=== PATIENT | female | born 1955 | race Caucasian/White ===

== ENCOUNTER 2022-11-27 10:43 | Outpatient (REF) | payer MEDICARE, SELFPAY ==
[2022-11-27 11:01] LABS: MANUAL DIFF FLAG NO
[2022-11-27 11:58] LABS: Basophils Absolute Auto 0.1 X10*3/uL (0.0-0.2); Eosinophils Absolute Auto 0.2 X10*3/uL (0.0-0.4); Eosinophils Percent Auto 2.4 % (0-4); Hematocrit 39.1 % (37.0-47.0); Hemoglobin 12.9 g/dl (12.0-16.0); Imm Gran Abs Auto 0.04 X10*3/uL (0.00-0.03); Imm Gran Pct Auto 0.6 % (0.0-0.4); Lymphocytes Absolute Auto 2.1 X10*3/uL (1.2-4.9); Lymphocytes Percent Auto 30.4 % (20-40); Mean Corpuscular Hemoglobin 28.5 pg (27.0-33.0); Mean Corpuscular Volume 86.3 fL (80.0-98.0); Mean Platelet Volume 8.7 fL (9.4-12.3); Monocytes Absolute Auto 0.4 X10*3/uL (0.1-1.2); Monocytes Percent Auto 5.7 % (2-11); Neutrophils Absolute Auto 4.2 x10*3/uL (2.0-8.3); Neutrophils Percent Auto 59.9 % (45-73); Platelet Count 331 X10*3/uL (160-400); Red Blood Count 4.53 X10*6/uL (4.20-5.50); Red Cell Distribution Width 12.9 % (11.0-16.0)
[2022-11-27 12:56] LABS: Alanine Aminotransferase 13 U/L (0-31); Albumin Level 4.1 g/dL (3.5-5.0); Alkaline Phosphatase 71 U/L (39-117); Anion Gap 9 (12-20); Aspartate Amino Transferase 16 U/L (5-31); Bilirubin Total 0.4 mg/dL (0.0-1.0); Blood Urea Nitrogen 11 mg/dL (9-16); Calcium 9.4 mg/dL (8.4-10.2); Carbon Dioxide 31 mmol/L (22-29); Chloride 105 mmol/L (96-108); Cholesterol 194 mg/dL; Estimated Glomerular Filt Rate > 60; Glucose Fasting 96 mg/dL (60-99); HDL Cholesterol 49 mg/dL; LDL Cholesterol Calculated 131 mg/dl; Sodium 141 mmol/L (135-145); Triglycerides 71 mg/dL
[2022-11-27 13:14] LABS: Estimated Average Glucose 105 mg/dL; Hemoglobin A1C 152.5264 umol/L; Hemoglobin A1c % 5.3 %
== END 2022-11-27 10:44 | disposition home or self-care (01) ==
LOC: HO.LAB 10:43
PROVIDERS: PCP Internal Medicine; Visit Provider Internal Medicine
DX: I10 Essential (primary) hypertension (principal); G47.00 Insomnia, unspecified; R73.03 Prediabetes; Z83.3 Family history of diabetes mellitus
CPT/HCPCS: 36415; 80053; 80061; 83036; 85025

== ENCOUNTER 2023-10-22 10:31 | Outpatient (REF) | payer MEDICARE, SELFPAY ==
[2023-10-22 13:47] LABS: Cholesterol 193 mg/dL (<200); HDL Cholesterol 49 mg/dL (>40); LDL Cholesterol Calculated 132 mg/dL (<100); Triglycerides 64 mg/dL (<150)
== END 2023-10-22 10:32 | disposition home or self-care (01) ==
LOC: HO.HMGCLDS 10:31
PROVIDERS: PCP Internal Medicine; Visit Provider Internal Medicine
DX: E78.00 Pure hypercholesterolemia, unspecified (principal)
CPT/HCPCS: 36415; 80061

== ENCOUNTER 2023-11-12 09:52 | Outpatient (REF) | payer MEDICARE, SELFPAY ==
[2023-11-12 11:16] LABS: MANUAL DIFF FLAG NO
[2023-11-12 11:26] LABS: Basophils Absolute Auto 0.1 X10*3/uL (0.0-0.2); Basophils Percent Auto 1.4 % (0-2); Eosinophils Absolute Auto 0.1 X10*3/uL (0.0-0.4); Hematocrit 41.3 % (37.0-47.0); Hemoglobin 13.6 g/dl (12.0-16.0); Imm Gran Abs Auto 0.02 X10*3/uL (0.00-0.03); Imm Gran Pct Auto 0.3 % (0.0-0.4); Lymphocytes Absolute Auto 1.9 X10*3/uL (1.2-4.9); Lymphocytes Percent Auto 27.4 % (20-40); Mean Corpuscular HGB Conc 32.9 g/dl (31.0-35.0); Mean Platelet Volume 8.8 fL (9.4-12.3); Monocytes Absolute Auto 0.4 X10*3/uL (0.1-1.2); Monocytes Percent Auto 6.1 % (2-11); Neutrophils Absolute Auto 4.4 x10*3/uL (2.0-8.3); Neutrophils Percent Auto 62.8 % (45-73); Platelet Count 346 X10*3/uL (160-400); Red Blood Count 4.86 X10*6/uL (4.20-5.50); Red Cell Distribution Width 12.7 % (11.0-16.0); White Blood Count 7.1 X10*3/uL (4.8-10.8)
[2023-11-12 12:04] LABS: Rheumatoid Factor < 13.0 IU/mL (<15.0)
[2023-11-12 12:14] LABS: Alanine Aminotransferase 13 U/L (0-31); Albumin Level 4.3 g/dL (3.5-5.0); Alkaline Phosphatase 66 U/L (39-117); Anion Gap 14 (12-20); Aspartate Amino Transferase 17 U/L (5-31); Bilirubin Total 0.5 mg/dL (0.0-1.0); Blood Urea Nitrogen 11 mg/dL (9-16); Calcium 10.1 mg/dL (8.4-10.2); Carbon Dioxide 27 mmol/L (22-29); Chloride 102 mmol/L (96-108); Estimated Glomerular Filt Rate > 60; Glucose Random 102 mg/dL (60-115); Potassium 4.3 mmol/L (3.3-5.1); Sodium 139 mmol/L (135-145); Total Protein 7.6 g/dL (6.5-8.0)
[2023-11-12 12:37] LABS: Free T4 (Free Thyroxine) 0.86 ng/dL (0.71-1.85)
[2023-11-13 23:13] LABS: Lyme Abs Screen <0.90 index
[2023-11-15 08:18] LABS: Anti Nuclear Antibody Screen NEGATIVE (NEGATIVE)
== END 2023-11-12 09:53 | disposition home or self-care (01) ==
LOC: HO.10HDL 09:52
PROVIDERS: Visit Provider Internal Medicine
DX: R53.83 Other fatigue (principal); M25.50 Pain in unspecified joint; W57.XXXA Bitten or stung by nonvenomous insect and other nonvenomous arthropods, initial encounter; Z86.39 Personal history of other endocrine, nutritional and metabolic disease
CPT/HCPCS: 36415; 80053; 84439; 84443; 85025; 86038; 86431; 86617; 86618

== ENCOUNTER 2025-01-23 10:46 | Outpatient (REF) | payer MEDICARE, SELFPAY ==
[2025-01-23 12:27] LABS: Hematocrit 40.0 % (37.0-47.0); Hemoglobin 13.3 g/dl (12.0-16.0); Mean Corpuscular HGB Conc 33.3 g/dl (31.0-35.0); Mean Corpuscular Hemoglobin 28.5 pg (27.0-33.0); Mean Corpuscular Volume 85.8 fL (80.0-98.0); NRBC Abs Auto 0.000 X10*3/uL (0.0-0.012); NRBC Pct Auto 0.0 /100WBC (0.0-0.2); Platelet Count 336 X10*3/uL (160-400); Red Blood Count 4.66 X10*6/uL (4.20-5.50); White Blood Count 6.4 X10*3/uL (4.8-10.8)
[2025-01-23 12:36] LABS: Hemoglobin A1C 130.4903 umol/L; Total Hemoglobin (HGBA1C) 3441.1382 umol/L
[2025-01-23 12:44] LABS: Appearance Urine Clear; Glucose Urine UA Negative (Negative); PH 6.0 (5.0-9.0); Specific Gravity - Urine 1.020 (1.005-1.025); UMIC TRIGGER UA YES
[2025-01-23 12:47] LABS: Alanine Aminotransferase 17 U/L (0-31); Albumin Level 4.4 g/dL (3.5-5.0); Alkaline Phosphatase 69 U/L (39-117); Anion Gap 11 (12-20); Aspartate Amino Transferase 22 U/L (5-31); Blood Urea Nitrogen 11 mg/dL (9-16); Calcium 9.1 mg/dL (8.4-10.2); Carbon Dioxide 27 mmol/L (22-29); Chloride 107 mmol/L (96-108); Cholesterol 215 mg/dL (<200); Estimated Glomerular Filt Rate > 60; HDL Cholesterol 49 mg/dL (>40); Potassium 3.9 mmol/L (3.3-5.1); Sodium 141 mmol/L (135-145); Total Protein 7.5 g/dL (6.5-8.0); Triglycerides 70 mg/dL (<150)
[2025-01-23 13:02] LABS: Thyroid Stimulating Hormone 1.66 uIU/mL (0.32-4.0)
== END 2025-01-23 10:47 | disposition home or self-care (01) ==
LOC: HO.10HDL 10:46
PROVIDERS: PCP Physician Assistant; Visit Provider Internal Medicine
DX: I10 Essential (primary) hypertension (principal); Z13.1 Encounter for screening for diabetes mellitus
CPT/HCPCS: 36415; 80048; 80061; 80076; 81001; 83036; 84443; 85027; 99212

== ENCOUNTER 2025-01-23 10:46 | Outpatient (AMB) | payer MEDICARE, SELFPAY ==
--- NOTE | 2025-01-23 10:28 | A.OFFPC_ITS ---
Vital Signs 01/23/25 10:51 Height 5 ft Weight 157 lb BMI 30.7 BP 130/72 Blood Pressure Location Rt brachial Position Sitting Pulse 64 Pulse Source Pulse Oximeter Temp 97.1 F Temp Source Axillary Pulse Oximetry (%) 97 Oxygen Delivery Method Room Air Intake Visit Reasons: routine Party Supply Specialist Required: No Accompanied by: Self / Same As Patient Allergies No Known Allergies Allergy (Verified 01/23/25 19:37) Medication List - Last Reconciled 01/23/25 by Anthony Hammonds MD aspirin 81 mg PO DAILY B-complex with vitamin C 1 cap PO DAILY cholecalciferol (vitamin D3) 50 mcg PO DAILY esomeprazole magnesium (Nexium) 20 mg PO DAILY lisinopril 2.5 mg PO DAILY Tobacco use date assessed: 01/23/25 Fall risk assessment: No Falls in past year Last assessed Fall Risk: 01/23/25 Dental Screening Dental Screen Date: 01/23/25 Did you have a dental visit in the last 12 months?: Yes Did you have a dental problem in the last 6 months where you did not have access to dental care?: No PFSH Medical History Essential hypertension Family History Mother No problems noted. Father No problems noted. Social History Housing: House Patient Tobacco Use Status: Never used Tobacco e-Cigarette/Vaping Use: Never Used service: No Current occupational status: employed Cognitive needs: No Hearing needs: No Vision needs: Yes (rx glasses) Questionnaire PHQ-9 Over the last 2 weeks, how often have you been bothered by any of the following problems? 1. Little interest or pleasure in doing things: not at all 2. Feeling down, depressed, or hopeless: not at all 3. Trouble falling or staying asleep, or sleeping too much: not at all 4. Feeling tired or having little energy: not at all 5. Poor appetite or overeating: not at all 6. Feeling bad about yourself - or that you are a failure or have let yourself or your family down: not at all 7. Trouble concentrating on things, such as reading the newspaper or watching television: not at all 8. Moving or speaking so slowly that other people could have noticed. Or the opposite - being so fidgety or restless that you have been moving around a lot more than usual: not at all 9. Thoughts that you would be better off or of hurting yourself in some way: not at all Total score: 0 Source: Developed by Drs. Wade Harman, Rekha Levine, Kevin Holm and colleagues, with an educational gail from [employer]. Thrive Questionnaire Date Thrive assessed: 01/23/25 I am a: Patient Within the past 12 months, did the food you bought not last and you didn't have the money to get more?: Never true Within the past 12 months, did you worry whether your food would run out before you got money to buy more?: Never true Do you have trouble paying for medicines?: No Do you have trouble getting transportation to medical appointments?: No Do you have trouble paying your heating and electricity bill?: No Do you have trouble taking care of your child, family member or friend?: No Do you have trouble with day-to-day activities such as bathing, preparing meals, shopping, managing finances, etc.?: No Are you currently unemployed and looking for a job?: No Are you interested in more education?: No THRIVE Score: 0 AUDIT C Alcohol Use Questionnaire (AUDIT-C) 1. How often do you have a drink containing alcohol?: Never 3. How often do you have six or more drinks on one occasion?: Never Total Score: 0 VIKRAM-7 AMB Questionnaire VIKRAM-7 Date VIKRAM - 7 assessed: 01/23/25 Feeling nervous, anxious, or on edge: 1 = Several days Not being able to stop or control worryin = Not at all Worrying too much about different things: 0 = Not at all Trouble relaxin = Not at all Being so restless that it is hard to sit still: 0 = Not at all Becoming easily annoyed or irritable: 0 = Not at all Feeling afraid as if something awful might happen: 0 = Not at all Total VIKRAM-7 score (0-4 normal; 5-9 mild; 10-14 moderate; 15-21 severe): 1 Source: Developed by Drs. Wade Harman, Rekha Levine, Kevin Holm and colleagues, with an educational gail from [employer]. Physical exam (Primary Care) Vital Signs: Last Vital Signs Temp 97.1 F 01/23/25 10:51 Pulse 64 01/23/25 10:51 BP 130/72 01/23/25 10:51 Pulse Ox 97 01/23/25 10:51 Oxygen Delivery Method Room Air 01/23/25 10:51 BMI result Body Mass Index 30.7 Tobacco/Smoking Status: Tobacco use Status Tobacco use date assessed 01/23/25 01/23/25 10:30 Patient Tobacco Use Status Never used Tobacco 01/23/25 10:30 e-Cigarette/Vaping Use Never Used 01/23/25 10:30 PHQ-9: PHQ-9 Score PHQ-9: Total score 0 01/23/25 10:56 Thrive Assessment: Date of Thrive Assessment Date Thrive assessed 01/23/25 01/23/25 10:30 Coding Level of Care Code Est Pt Level 4 (42584) Complex EM visit Add On G2211 Diagnoses Essential hypertension I10 Assessment & Plan Assessment & Plan (1) Essential hypertension: Code(s): I10 - Essential (primary) hypertension Category: Medical Plan: BP in range. DEXA scan ordered. Plan History of Present Illness - The patient is a 69-year-old female presenting for a wellness visit and management of chronic conditions. - Essential Hypertension: The patient is on a 2.5 mg dose of antihypertensive medication, maintaining her blood pressure within normal limits. 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 - Preventative care: The patient has an annual mammogram scheduled and completed a negative Cologuard test in 2022. - Family history: The patient has a family history of diabetes and hypothyroidism, leading to her request for fasting blood work including A1c and TSH. - Bone density scan: The patient has requested an order for a bone density scan, which has not been done in years. 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 - Family status: The patient is and has been with her for over 40 years. - Exercise and habits: The patient does not consume red meat, which she believes contributes to her favorable cholesterol levels. Review of Systems - Cardiovascular: Denies chest pain or palpitations. - Endocrine: Denies symptoms of hypothyroidism. - Vision: Reports regular eye examinations every 18 months and updates glasses as needed. Physical Exam General: Cooperative and healthy appearing Nutritional Appearance: Well nourished Orientation/consciousness: Patient oriented x3 Limitations: No limitations Head: Normal to inspection General: Appearance normal, both eyes and all related structures Neck: Normal visual inspection Chest: Normal palpation of entire chest wall Respiratory: N ormal respiratory effort Neurology: Patient oriented x3, Vision is good Results - Labs: Fasting blood work including A1c and TSH requested due to family history of diabetes and hypothyroidism. - Tests: Mammogram scheduled annually, bone density scan pending, and Cologuard test completed in 2022 with negative results. Plan 1. Essential Hypertension - Continue current antihypertensive medication at 2.5 mg as blood pressure is well-controlled. 2. Preventative Care - Schedule and complete bone density scan as requested. - Continue annual mammogram screenings. - Follow up on fasting blood work including A1c and TSH due to family history of diabetes and hypothyroidism. - Cologuard test completed in 2022 was negative; continue routine colon cancer screening as per guidelines. Discussion Notes During the visit, we discussed the continuation of the current antihypertensive medication as the patient's blood pressure is well-controlled. We also reviewed the importance of routine preventative care, including scheduling a bone density scan and maintaining annual mammogram screenings. The patient was advised to follow up on fasting blood work due to her family history of diabetes and hypothyroidism. The recent negative Cologuard test was noted, and the patient was encouraged to continue routine colon cancer screening as per guidelines. Patient Instructions - Continue taking your blood pressure medication as prescribed. - Schedule and complete your bone density scan. - Attend your annual mammogram appointment. - Follow up on your fasting blood work, including A1c and TSH tests. - Continue routine colon cancer screening as advised. Orders: Orders Lipid Panel Today I10 - Essential (primary) hypertension Basic Metabolic Panel Today I10 - Essential (primary) hypertension Complete Blood Count no Diff Today I10 - Essential (primary) hypertension Hemoglobin A1c Today I10 - Essential (primary) hypertension Liver Panel Today I10 - Essential (primary) hypertension Thyroid Stimulating Hormone Today I10 - Essential (primary) hypertension UA and rflx microscopic Today I10 - Essential (primary) hypertension XR DEXA axial skeleton Today M81.0 - Age-related osteoporosis without current pathological fracture Medications: New lisinopril 2.5 mg PO DAILY 90 tabs 1RF
[2025-01-23 10:51] VITALS: BP 130/72; PULSE 64; TEMP 36.2; O2SAT 97; BMI 30.7
--- OUTSIDE RECORDS SUMMARY | 2025-01-23 11:51 | XMS_ITS | Patient Health Record ---
Author Organization [facility] Address [address] [place] [id number] Care Team Providers Care Tour Sales Representative Name Role Phone Mohamud Manzano Jr [phone] Reason For Referral No Information Plan Of Treatment No Information
--- OUTSIDE RECORDS SUMMARY | 2025-01-23 11:51 | XMS_ITS | Clinical Summary ---
Author Organization [facility] Address [address] [facility] [address] [place] [phone] Phone Care Team Providers Care Vacuum Bottle Assembler Name Role Phone Bridger Oliveira MD Primary Care Provider Encounters Date Type Department Care Team Description 12/01/2024 Transcribe Orders Virtual Department [address] [place] [address] Bridger Oliveira MD Breast screening (Primary Dx) from Last 3 Months Family History Medical History Relation Comments Breast cancer Cousin Breast cancer Maternal Aunt Breast cancer Mother Relation Status Comments Cousin Maternal Aunt Mother Social History Tobacco Use Types Packs/Day Years Used Date Smoking Tobacco: Never Assessed Tobacco Cessation:Counseling Given: Not Answered Education Answer Date Recorded Are you interested in more education? Not on mahesh e 10/31/2022 Are you concerned about learning? Not on file 10/31/2022 No 10/31/2022 No 10/31/2022 Digital Access Answer Date Recorded No 12/01/2022 No 12/01/2022 Reliable internet access at home? Not on file 12/01/2022 Device with a working camera? Not on file Comments No Sex and Gender Information Value Date Recorded Sex Assigned at Not on file Legal Sex Female 9:55 PM EDT Gender Identity Not on file Sexual Orientation Not on file Plan of Treatment Upcoming Encounters Date Type Department Care Team (Late st Contact Info) Description 12/01/2024 Procedure Pass [facility] - [address] [place] [address] 06/20/2025 9:45 AM EST Appointment [address] [place], [place] [address] Bridger Oliveira MD [address] [place] [address] [place] [address] [place] [address] Medical Devices Not on file [place] [address] [place] [address] MEDICARE POS PPO [place] [address] [place] [address] MEDICARE POS [place] [address] [place] [address] MEDICARE POS PPO REPLACEMENT [employer] [place] MEDICARE POS PPO REPLACEMENT [employer] [place] MEDICARE POS PPO REPLACEMENT [employer] [place] MEDICARE POS PPO REPLACEMENT [employer] [place] MED[employer] POS PPO REPLACEMENT [employer] [place] MEDICARE POS PPO REPLACEMENT [employer] [place] MEDICARE POS PPO REPLACEMENT Care Teams Vacuum Bottle Assembler Relationship Specialty Start Date End Date Bridger Oliveira MD [address] [place] [address] [address] [place] [address] PCP - General Internal Medicine 07/30/17 Additional Source Comments The information contained in this document represents components of the legal health record. It is not the complete legal health record.[facility]
== END 2025-01-23 11:15 | disposition home or self-care (01) ==
LOC: HO.HMCHD 10:47
PROVIDERS: PCP Physician Assistant; Visit Provider Internal Medicine
DX: I10 Essential (primary) hypertension (principal)

== ENCOUNTER 2025-03-10 11:22 | Outpatient (REF) | payer MEDICARE, SELFPAY ==
--- NOTE | ~2025-03-10 | MM_ITS ---
EXAMINATION: DXA BONE DENSITY AXIAL HISTORY: M81.0 - Age-related osteoporosis without current pathological fracture TECHNIQUE: F?rsat Bu F?rsat Dual energy absorptiometry (DEXA) of the lumbar spine, total left hip, and femoral neck was performed. COMPARISON: There are no prior studies for comparison. FINDINGS: The bone mineral density of the lumbar spine is 1.064 g/cm2, corresponding to a T-score of -0.8, and a Z-score of 0.6. This is indicative of normal bone mineral density. The bone mineral density of the left total hip is 0.817 g/cm2, corresponding to a T-score of -1.5, and a Z-score of -0.2. This is indicative of osteopenia. The bone mineral density of the left femoral neck is 0.711 g/cm2, corresponding to a T-score of -2.4, and a Z-score of -0.8. This is indicative of osteopenia. FRACTURE RISK: The FRAX index suggests a risk of major osteoporotic fracture of 13.3%, and of hip fracture 3.1%. MM/XR DEXA axial skeleton IMPRESSION: Based on bone mineral density, and according to World Health Organization (WHO) criteria, the diagnosis is consistent with osteopenia. Statistically, 68% of repeat scans fall within 1 SD (+/- 0.010 g/cm2 for AP spine L1-L4) and 1 SD (+/- 0.012 g/cm2 for femur total) FRAX is a trademark of the [employer] [place] [employer] Met[employer], a World Health Organization (WHO) Collaborating Center. Electronically signed by: Wade Mcneil MD 03/10/2025 11:52 AM EDT
--- OUTSIDE RECORDS SUMMARY | 2025-03-10 12:23 | XMS_ITS | Encounter Summary ---
Author Organization [facility] Address [address] [facility] [address] [place] [phone] Phone Care Team Providers Care Director Medical Surgical Name Role Phone Bridger Oliveira MD Primary Care Provider Encounter Details Date Type Department Care Team (Late st Contact Info) Description 01/31/2019 Ancillary Orders Virtual Department [address] [place] [address] Bridger Oliveira MD [address] [place] [address] [place] [id number] Breast screening Social History Tobacco Use Types Packs/Day Years Used Date Smoking Tobacco: Never Assessed Comments No Sex and Gender Information Value Date Recorded Sex Assigned at Not on file Legal Sex Female 9:55 PM EDT Gender Identity Not on file Sexual Orientation Not on file documented as of this encounter Plan of Treatment Upcoming Encounters Date Type Department Care Team (Late Contact Info) Description 12/01/2024 Procedure Pass [address] [place] [address] 06/20/2025 9:45 AM EST Appointment [address] [place] [address] Bridger Oliveira MD [address] [place] [address] [place] [address] documented as of this encounter Results * BI MAMMOGRAM SCREENING WITH TOMOSYNTHESIS WITH CAD (BILATERAL) (02/02/2019 11:17 AM EDT) Anatomical Region Laterality Modality Breast Left, Breast Right, Breast Bilateral Bila teral Mammography 02/02/2019 12:2 7 PM EDT Impressions 02/02/2019 12:33 PM EDT No findings suspicious for malignancy are identified. In the absence of a worrisome palpable abnormality, annual screening mammography is recommended. BI-RADS CATEGORY: 1 - Negative. DENSITY: The breast tissue is almost entirely fat. POS CDHMAMA Narrative 02/02/2019 12:33 PM EDT COMPARISON: 03/16/2013 through 08/19/2017 Bilateral 3-D tomosynthesis with 2-D reconstructions in the CC and MLO projection. Computer-aided detection system also utilized. No new mass, asymmetry, architectural distortion or suspicious calcifications have become apparent on either side. Procedure Note Jerrell Leon MD - 02/02/2019 COMPARISON: 03/16/2013 through 08/19/2017 Bilateral 3-D tomosynthesis with 2-D reconstructions in the CC and MLOprojection. Computer-aided detection system also utilized. No new mass, asymmetry, architectural distortion or suspiciouscalcifications have become apparent on either side. IMPRESSION: No findings suspicious for malignancy are identified. In the absence of aworrisome palpable abnormality, annual screening mammography isrecommended. BI-RADS CATEGORY: 1 - Negative. DENSITY: The breast tissue is almost entirely fat. POS CDHMAMA Bridger Oliveira MD IMG MG EXAMS Final R esult documented in this encounter Visit Diagnoses Diagnosis Breast screening Breast screening, unspecified Breast screening Breast screening, unspecified documented in this encounter Care Teams Director Medical Surgical Relationship Specialty Start Date End Date Bridger Oliveira MD [address] [place] [address] [place] [phone] PCP - General Internal Medicine 07/30/17 documented as of this encounter Additional Source Comments The information contained in this document represents components of the legal health record. It is not the complete legal health record.[facility]
--- OUTSIDE RECORDS SUMMARY | 2025-03-10 12:23 | XMS_ITS | Encounter Summary ---
Author Organization [facility] Address [address] [facility] [address] [place] [phone] Phone Care Team Providers Care Shell Molding Roller Blast Operator Name Role Phone Bridger Oliveira MD Primary Care Provider Encounter Details Date Type Department Care Team (Late st Contact Info) Description 09/04/2021 Transcribe Orders Virtual Department 30 [place] [address] Bridger Oliveira MD [address] [place] [address] [place] [phone] Breast screening (Primary Dx) Social History Tobacco Use Types Packs/Day Years [...] st Contact Info) Description 12/01/2024 Procedure Pass [address] [place] [address] 06/20/2025 9:45 AM EST Appointment [address] [place] [address] Bridger Oliveira MD [address] [place] [address] [place] [id number] documented as of this encounter Results * BI MAMMOGRAM SCREENING WITH TOMOSYNTHESIS WITH CAD (BILATERAL) (09/24/2021 10:51 AM EDT) Anatomical Region Laterality Modality Breast Left, Breast Right, Breast Bilateral Bila teral Mammography 09/24/2021 5:15 PM EDT Impressions 09/24/2021 5:19 PM EDT No mammographic signs of malignancy. Annual screening is recommended. BI-RADS CATEGORY: 1 - Negative. DENSITY: There are scattered fibroglandular densities. Narrative 09/24/2021 5:19 PM EDT Bilateral mammography is performed in conjunction with computed aided detection. 3-D tomography along with 2-D C view imaging was also performed. Comparison made to previous dated as far back as 01/31/2015 and as recent as 08/01/2020. No suspicious masses, areas of architectural distortion or suspicious microcalcifications. Procedure Note Antonio Mariee MD - 09/24/2021 Bilateral mammography is performed in conjunction with computed aideddetection. 3-D tomography along with 2-D C view imaging was alsoperformed. Comparison made to previous dated as far back as 01/31/2015 andas recent as 08/01/2020. No suspicious masses, areas of architectural distortion or suspiciousmicrocalcifications. IMPRESSION: No mammographic signs of malignancy. Annual screening is recommended. BI-RADS CATEGORY: 1 - Negative. DENSITY: There are scattered fibroglandular densities. Bridger Oliveira MD IMG MG EXAMS Final R esult documented in this encounter Visit Diagnoses Diagnosis Breast screening- Primary Breast screening, unspecified Breast screening Breast screening, unspecified documented in this encounter Care Teams Shell Molding Roller Blast Operator Relationship Specialty Start Date End Date Bridger Oliveira MD [address] [place] [address] [place] [phone] PCP - General Internal Medicine 07/30/17 documented as of this encounter Additional Source Comments The information contained in this document represents components of the legal health record. It is not the complete legal health record.[facility]
--- OUTSIDE RECORDS SUMMARY | 2025-03-10 12:23 | XMS_ITS | Encounter Summary ---
Author Organization [facility] Address [address] [facility] [address] [place] [phone] Phone Care Team Providers Care Gm/Svp Global Publisher Business Name Role Phone Bridger Oliveira MD Primary Care Provider Encounter Details Date Type Department Care Team (Late st Contact Info) Description 07/03/2022 Transcribe Orders Virtual Department [address] [place] [address] Bridger Oliveira MD [address] [place] [address] [place] [id number] Breast screening (Primary Dx) Social History Tobacco [...] (Late Contact Info) Description 12/01/2024 Procedure Pass [address] [place] [address] 06/20/2025 9:45 AM EST Appointment [address] [place] [address] Bridger Oliveira MD [address] [place] [address] [place] [id number] documented as of this encounter Results * BI MAMMOGRAM SCREENING WITH TOMOSYNTHESIS WITH CAD (BILATERAL) (09/25/2022 10:19 AM EDT) Anatomical Region Laterality Modality Breast Left, Breast Right, Breast Bilateral Bila teral Mammography 09/25/2022 10:3 7 AM EDT Impressions 09/25/2022 10:39 AM EDT No findings suspicious for malignancy are identified. In the absence of a worrisome palpable abnormality, annual screening mammography is recommended. BI-RADS CATEGORY: 1 - Negative. DENSITY: There are scattered fibroglandular densities. Narrative 09/25/2022 10:39 AM EDT AVAILABLE COMPARISON: 09/24/2021 through 12/13/2003 Bilateral 3-D tomosynthesis with 2-D reconstructions in the CC and MLO projection. Computer-aided detection system was utilized. No new mass, asymmetry, architectural distortion or suspicious calcifications have become apparent in either breast. Procedure Note Jerrell Leon MD - 09/25/2022 AVAILABLE COMPARISON: 09/24/2021 through 12/13/2003 Bilateral 3-D tomosynthesis with 2-D reconstructions in the CC and MLOprojection. Computer-aided detection system was utilized. No new mass, asymmetry, architectural distortion or suspiciouscalcifications have become apparent in either breast. IMPRESSION: No findings suspicious for malignancy are identified. In the absence of aworrisome palpable abnormality, annual screening mammography isrecommended. BI-RADS CATEGORY: 1 - Negative. DENSITY: There are scattered fibroglandular densities. Bridger Oliveira MD IMG MG EXAMS Final R esult documented in this encounter Visit Diagnoses Diagnosis Breast screening- Primary Breast screening, unspecified Breast screening Breast screening, unspecified documented in this encounter Care Teams Gm/Svp Global Publisher Business Relationship Specialty Start Date End Date Bridger Oliveira MD [address] [place] [address] [place] [phone] PCP - General Internal Medicine 07/30/17 documented as of this encounter Additional Source Comments The information contained in this document represents components of the legal health record. It is not the complete legal health record.[facility]
--- OUTSIDE RECORDS SUMMARY | 2025-03-10 12:23 | XMS_ITS | Encounter Summary ---
Author Organization [facility] Address [address] [place] [address] [place] [phone] Phone Care Team Providers Care Bulk Driver Name Role Phone Bridger Oliveira MD Primary Care Provider Encounter Details Date Type Department Care Team (Late st Contact Info) Description 09/04/2021 Procedure Pass [address] [place] [address] Social History Tobacco Use Types Packs/Day Years [...] st Contact Info) Description 12/01/2024 Procedure Pass [address] [place] [address] 06/20/2025 9:45 AM EST Appointment [address] [place] [address] Bridger Oliveira MD [address] [place] [address] [place] [phone] documented as of this encounter Visit Diagnoses Not on filedocumented in this encounter Care Teams Bulk Driver Relationship Specialty Start Date End Date Bridger Oliveira MD [address] [place] [address] [place] [id number] PCP - General Internal Medicine 07/30/17 documented as of this encounter Additional Source Comments The information contained in this document represents components of the legal health record. It is not the complete legal health record.[facility]
--- OUTSIDE RECORDS SUMMARY | 2025-03-10 12:23 | XMS_ITS | Patient Health Record ---
Author Organization [facility] Address [address] [place] [phone] Care Team Providers Care Paper Machine Back Tender Name Role Phone Mohamud Manzano Jr Reason For Referral No Information Plan Of Treatment No Information
--- OUTSIDE RECORDS SUMMARY | 2025-03-10 12:23 | XMS_ITS | Encounter Summary ---
Author Organization [facility] Address [address] [facility] [address] [place] [phone] Phone Care Team Providers Care Automatic Silk Screen Printer Name Role Phone Bridger Oliveira MD Primary Care Provider Encounter Details Date Type Department Care Team (Late st Contact Info) Description 10/07/2023 Procedure Pass [address] [place] [address] Social History Tobacco Use Types Packs/Day Years Used Date Smoking Tobacco: Never Assessed Education Answer Date Recorded Are you interested in more education? Not on mahehs e 10/31/2022 Are you concerned about learning? [...] st Contact Info) Description 12/01/2024 Procedure Pass [address] [place] [address] 06/20/2025 9:45 AM EST Appointment [address] [place] [address] Bridger Oliveira MD [address] [place] [address] [place] [id number] documented as of this encounter Visit Diagnoses Not on filedocumented in this encounter Care Teams Automatic Silk Screen Printer Relationship Specialty Start Date End Date Bridger Oliveira MD [address] [place] [address] [place] [address] PCP - General Internal Medicine 07/30/17 documented as of this encounter Additional Source Comments The information contained in this document represents components of the legal health record. It is not the complete legal health record.[facility]
--- OUTSIDE RECORDS SUMMARY | 2025-03-10 12:23 | XMS_ITS | Encounter Summary ---
Author Organization [facility] Address [address] [place] [address] [place] [address] Phone Care Team Providers Care Health It Specialist Name Role Phone Bridger Oliveira MD Primary Care Provider Encounter Details Date Type Department Care Team (Late st Contact Info) Description 07/03/2022 Procedure Pass [address] [place] [address] Social History Tobacco Use Types Packs/Day Years [...] st Contact Info) Description 12/01/2024 Procedure Pass [address] [place] [address] 06/20/2025 9:45 AM EST Appointment [address] [place] [address] Bridger Oliveira MD [address] [place] [address] [place] [address] documented as of this encounter Visit Diagnoses Not on filedocumented in this encounter Care Teams Health It Specialist Relationship Specialty Start Date End Date Bridger Oliveira MD [address] [place] [address] [place] [address] PCP - General Internal Medicine 07/30/17 documented as of this encounter Additional Source Comments The information contained in this document represents components of the legal health record. It is not the complete legal health record.[facility]
--- OUTSIDE RECORDS SUMMARY | 2025-03-10 12:23 | XMS_ITS | Encounter Summary ---
Author Organization [facility] Address [address] [facility] [address] [place] [phone] Phone Care Team Providers Care Project Inspector Name Role Phone Bridger Oliveira MD Primary Care Provider Encounter Details Date Type Department Care Team (Late st Contact Info) Description 10/07/2023 Transcribe Orders Virtual Department [address] [place] [address] Bridger Oliveira MD [address] [place] [address] [place] [id number] Breast screening (Primary Dx) Social History Tobacco [...] st Contact Info) Description 12/01/2024 Procedure Pass [address] [place] [address] 06/20/2025 9:45 AM EST Appointment [address] [place] [address] Bridger Oliveira MD [address] [place] [address] [place] [address] documented as of this encounter Results * BI MAMMOGRAM SCREENING WITH TOMOSYNTHESIS WITH CAD (BILATERAL) (12/14/2023 2:32 PM EDT) Anatomical Region Laterality Modality Breast Left, Breast Right, Breast Bilateral Bila teral Mammography 12/16/2023 2:34 PM EDT Impressions 12/16/2023 3:29 PM EDT No mammographic evidence of malignancy in either breast. Annual screening mammography is recommended. BI-RADS 1 NEGATIVE The patient will be notified of the results and recommendations. Narrative 12/16/2023 3:29 PM EDT BI MAMMOGRAM SCREENING WITH TOMOSYNTHESIS WITH CAD (BILATERAL) Additional patient information: Screening. COMPARISON: Comparison is made with relevant prior imaging. Breast composition: There are scattered areas of fibroglandular density. FINDINGS: No abnormal masses, suspicious calcifications, or other significant findings are identified mammographically in either breast. Procedure Note Soniya Milton MD - 12/16/2023 BI MAMMOGRAM SCREENING WITH TOMOSYNTHESIS WITH CAD (BILATERAL) Additional patient information: Screening. COMPARISON: Comparison is made with relevant prior imaging. Breast composition: There are scattered areas of fibroglandular density. FINDINGS: No abnormal masses, suspicious calcifications, or other significantfindings are identified mammographically in either breast. IMPRESSION: No mammographic evidence of malignancy in either breast. Annual screening mammography is recommended. BI-RADS 1 NEGATIVE The patient will be notified of the results and recommendations. Bridger Oliveira MD IMG MG EXAMS Final R esult documented in this encounter Visit Diagnoses Diagnosis Breast screening- Primary Breast screening, unspecified Breast screening Breast screening, unspecified documented in this encounter Care Teams Project Inspector Relationship Specialty Start Date End Date Bridger Oliveira MD [address] [place] [address] [place] [address] PCP - General Internal Medicine 07/30/17 documented as of this encounter Additional Source Comments The information contained in this document represents components of the legal health record. It is not the complete legal health record.[facility]
--- OUTSIDE RECORDS SUMMARY | 2025-03-10 12:23 | XMS_ITS | Encounter Summary ---
Author Organization [facility] Address [address] [place] [address] [place] [phone] Phone Care Team Providers Care Model Technician Name Role Phone Bridger Oliveira MD Primary Care Provider Encounter Details Date Type Department Care Team (Late st Contact Info) Description 07/19/2020 Procedure Pass [address] [place] [address] Social History Tobacco Use Types Packs/Day Years [...] st Contact Info) Description 12/01/2024 Procedure Pass [address] [place] [address] 06/20/2025 9:45 AM EST Appointment [address] [place] [address] Bridger Oliveira MD [address] [place] [address] [place] [address] documented as of this encounter Visit Diagnoses Not on filedocumented in this encounter Care Teams Model Technician Relationship Specialty Start Date End Date Bridger Oliveira MD [address] [place] [address] [place] [address] PCP - General Internal Medicine 07/30/17 documented as of this encounter Additional Source Comments The information contained in this document represents components of the legal health record. It is not the complete legal health record.[facility]
--- OUTSIDE RECORDS SUMMARY | 2025-03-10 12:23 | XMS_ITS | Encounter Summary ---
Author Organization [facility] Address [address] [facility] [address] [place] [phone] Phone Care Team Providers Care Educational Aide Name Role Phone Bridger Oliveira MD Primary Care Provider Encounter Details Date Type Department Care Team (Late st Contact Info) Description 07/30/2017 Ancillary Orders Virtual Department [address] [place] [address] Bridger Oliveira MD [address] [place] [address] [place] [address] Breast screening Social History Tobacco Use Types Packs/Day Years Used Date Smoking Tobacco: Never Assessed Comments Unknown Sex and Gender Information Value Date Recorded Sex Assigned at Not on file Legal Sex Female 9:55 PM EDT Gender Identity Not on file Sexual Orientation Not on file documented as of this encounter Plan of Treatment Upcoming Encounters Date Type Department Care Team (Late Contact Info) Description 12/01/2024 Procedure Pass [address] [place] [address] 06/20/2025 9:45 AM EST Appointment [address] [place] [address] Bridger Oliveira MD [address] [place] [address] [place] [address] documented as of this encounter Results * BI MAMMOGRAM SCREENING WITH TOMOSYNTHESIS WITH CAD (BILATERAL) (08/19/2017 9:55 AM EST) Anatomical Region Laterality Modality Breast Left, Breast Right, Breast Bilateral Bila teral Mammography 08/19/2017 10:2 8 AM EST Impressions 08/19/2017 10:33 AM EST No findings suspicious for malignancy. In the absence of a worrisome palpable abnormality, annual screening mammography is recommended. BI-RADS CATEGORY: 2 - Benign finding. DENSITY: There are scattered fibroglandular densities. POS CDHMAMA Narrative 08/19/2017 10:33 AM EST COMPARISON: 01/21/2012 through 03/06/2016. Bilateral 3-D tomosynthesis with 2-D reconstructions in the CC and MLO projection of each breast was obtained. Computer-aided detection system also utilized. No new mass, asymmetry, architectural distortion or suspicious calcifications have become apparent on either side. Small lymph nodes in the axilla bilaterally are unchanged for years Procedure Note Jerrell Leon MD - 08/19/2017 COMPARISON: 01/21/2012 through 03/06/2016. Bilateral 3-D tomosynthesis with 2-D reconstructions in the CC and MLOprojection of each breast was obtained. Computer-aided detection systemalso utilized. No new mass, asymmetry, architectural distortion or suspiciouscalcifications have become apparent on either side. Small lymph nodes in the axilla bilaterally are unchanged for years IMPRESSION: No findings suspicious for malignancy. In the absence of a worrisomepalpable abnormality, annual screening mammography is recommended. BI-RADS CATEGORY: 2 - Benign finding. DENSITY: There are scattered fibroglandular densities. POS CDHMAMA Bridger Oliveira MD IMG MG EXAMS Final R esult documented in this encounter Visit Diagnoses Diagnosis Breast screening Breast screening, unspecified Breast screening Breast screening, unspecified documented in this encounter Care Teams Educational Aide Relationship Specialty Start Date End Date Bridger Oliveira MD [address] [place] [address] [place] [address] PCP - General Internal Medicine 07/30/17 documented as of this encounter Additional Source Comments The information contained in this document represents components of the legal health record. It is not the complete legal health record.[facility]
--- OUTSIDE RECORDS SUMMARY | 2025-03-10 12:23 | XMS_ITS | Encounter Summary ---
Author Organization [facility] Address [address] [facility] [address] [place] [phone] Phone Care Team Providers Care Head Bucker Name Role Phone Bridger Oliveira MD Primary Care Provider Encounter Details Date Type Department Care Team (Late st Contact Info) Description 07/19/2020 Ancillary Orders Virtual Department [address] [place] [address] Bridger Oliveira MD [address] [place] [address] [place] [address] Breast screening Social History Tobacco Use Types [...] (Late Contact Info) Description 12/01/2024 Procedure Pass [address] [place] [address] 06/20/2025 9:45 AM EST Appointment [address] [place] [address] Bridger Oliveira MD [address] [place] [address] [place] [address] documented as of this encounter Results * BI MAMMOGRAM SCREENING WITH TOMOSYNTHESIS WITH CAD (BILATERAL) (08/01/2020 2:43 PM EST) Anatomical Region Laterality Modality Breast Left, Breast Right, Breast Bilateral Bila teral Mammography 08/01/2020 2:49 PM EST Impressions 08/01/2020 2:51 PM EST No mammographic evidence of malignancy. Recommend routine annual surveillance. BI-RADS CATEGORY: 2 - Benign finding. DENSITY: There are scattered fibroglandular densities. Narrative 08/01/2020 2:51 PM EST 65-year-old female with no current breast symptoms. Comparison made to previous on 02/02/2019 and as far back as 08/14/2010. Interpretation made in conjunction with computer-aided detection and tomosynthesis. There are scattered areas of fibroglandular density. Chronic small benign bilateral upper-outer quadrant lymph nodes and benign macrocalcifications. There are no suspicious masses, areas of architectural distortion, or suspicious clusters of microcalcifications. Procedure Note Kartik Ge MD - 08/01/2020 65-year-old female with no current breast symptoms. Comparison made toprevious on 02/02/2019 and as far back as 08/14/2010. Interpretation made inconjunction with computer-aided detection and tomosynthesis. There are scattered areas of fibroglandular density. Chronic small benignbilateral upper-outer quadrant lymph nodes and benignmacrocalcifications. There are no suspicious masses, areas of architectural distortion, orsuspicious clusters of microcalcifications. IMPRESSION: No mammographic evidence of malignancy. Recommend routine annualsurveillance. BI-RADS CATEGORY: 2 - Benign finding. DENSITY: There are scattered fibroglandular densities. Bridger Oliveira MD IMG MG EXAMS Final R esult documented in this encounter Visit Diagnoses Diagnosis Breast screening Breast screening, unspecified Breast screening Breast screening, unspecified documented in this encounter Care Teams Head Bucker Relationship Specialty Start Date End Date Bridger Oliveira MD [address] [place] [address] [place] [address] PCP - General Internal Medicine 07/30/17 documented as of this encounter Additional Source Comments The information contained in this document represents components of the legal health record. It is not the complete legal health record.[facility]
--- OUTSIDE RECORDS SUMMARY | 2025-03-10 12:23 | XMS_ITS | Clinical Summary ---
Author Organization [facility] Address [address] [facility] [address] [place] [phone] Phone Care Team Providers Care Career Counselor Name Role Phone Bridger Oliveira MD Primary Care Provider Family History Medical History Relation Comments Breast [...] st Contact Info) Description 12/01/2024 Procedure Pass [address] [place] [address] 06/20/2025 9:45 AM EST Appointment [address] [place] [address] Bridger Oliveira MD [address] [place] [address] Dr Doug [place] [phone] Medical Devices Not on file Insurance [employer] POS PPO REPLACEMENT [...] [place] [employer] POS PPO REPLACEMENT Care Teams Career Counselor Relationship Specialty Start Date End Date Bridger Oliveira MD [address] [place] [address] Dr Camacho, MRACIE [address] PCP - General Internal Medicine 07/30/17 Additional Source Comments The information contained in this document represents components of the legal health record. It is not the complete legal health record.[facility]
== END 2025-03-10 11:23 | disposition home or self-care (01) ==
LOC: HO.MAMMO 11:22
PROVIDERS: PCP Internal Medicine; Visit Provider Internal Medicine
DX: M81.0 Age-related osteoporosis without current pathological fracture (principal)
CPT/HCPCS: 77080

== ENCOUNTER → 2025-03-10 11:30 | Outpatient (BNV) | payer MEDICARE, SELFPAY | PROVIDERS: PCP Internal Medicine; Visit Provider Radiology Diagnostic Radiology | DX: E28.39 Other primary ovarian failure (principal) | CPT/HCPCS: 77080 ==